=== PATIENT | male | born 1985 | race Caucasian/White ===

== ENCOUNTER 2017-03-30 17:44 | Emergency (ER) | payer BC ==
--- NOTE | 2017-03-30 18:14 | EDM.PDOC ---
<Marlin Bedolla - Last Filed: 03/30/17 19:06> ED HPI GENERAL MEDICAL PROBLEM - General Chief Complaint: Upper Extremity Injury/Pain Stated Complaint: LEFT WRIST PAIN Time Seen by Provider: 03/30/17 18:13 Source of Information: Reports: Patient History Limitations: Reports: No Limitations - History of Present Illness INITIAL COMMENTS - FREE TEXT/NARRATIVE: HISTORY AND PHYSICAL: []31-year-old male presents with left wrist pain History of Present Illness: [] Injured last night by extending his hand to catch a ball, and it hyperflexed. He is continuing to have pain Review of Systems: As per history of present illness and below otherwise all systems reviewed and negative. Past medical history: As per history of present illness and as reviewed below otherwise noncontributory. Surgical history: As per history of present illness and as reviewed below otherwise noncontributory. Social history: No reported history of drug or alcohol abuse. Family history: As per history of present illness and as reviewed below otherwise noncontributory. Physical exam: Alert and oriented male does not look to be in severe distress 3 questions appropriately HEENT: Atraumatic, normocehpalic, pupils reactive, negative for conjunctival pallor or scleral icterus, mucous membranes moist, throat clear, neck supple, nontender, trachea midline. Lungs: Clear to auscultation, breath sounds equal bilaterally, chest non tender. Heart: S1S2, regular, negative for clicks, rubs, or JVD. Abdomen: Soft, nondistended, nontender. Negative for masses or hepatossplenmegaly. Negative for costovertebral tenderness. Pelvis: Stable nontender. Genitourinary: Deferred. Rectal: Deferred Extremities: Atraumatic, negative for cords or calf pain. Radial pulse is easily palpable to left wrist. Sensation is intact. Full range of motion noted to fingers. Limited due to pain with moving wrist Neurovascular unremarkable. Neuro: Awake, alert, oriented. Cranial nerves II through XII unremarkable. Cerebellum unremarkable. Motor and sensory unremarkable throughout. Exam nonfocal. Diagnostics: []Wrist x-ray Therapeutics: [] Impression: [Possible fractured wrist] Plan: [] Follow-up with orthopedics Prescription has been written for hydrocodone/APAP 5/325 one 3 times a day when necessary pain #12 no refill Definitive disposition and diagnosis as appropriate pending reevaluation and review of above. Onset: Sudden Duration: Day(s): Location: Reports: Upper Extremity, Left Left Wrist Pain Score (Numeric/FACES): 9 - Related Data Allergies Allergy/AdvReac Type Severity Reaction Status Date / Time No Known Allergies Allergy Verified 03/30/17 17:52 Home Meds: Home Meds . [No Known Home Meds] 03/30/17 [History] Past Medical History Musculoskeletal History: Reports: Other (See Below) Other Musculoskeletal History: Broken neck, collar bone, right leg, finger - Past Surgical History HEENT Surgical History: Reports: Tonsillectomy Social & Family History - Tobacco Use Smoking Status *Q: Current Every Day Smoker Years of Tobacco use: 8 Packs/Tins Daily: 1 - Caffeine Use Caffeine Use: Reports: Coffee, Energy Drinks - Recreational Drug Use Recreational Drug Use: No Review of Systems - Review of Systems Review Of Systems: ROS reveals no pertinent complaints other than HPI. ED EXAM, GENERAL - Physical Exam Exam: See Below (See dictation) Course - Vital Signs Last Recorded V/S: Last Vital Signs Temp 36.3 C 03/30/17 19:21 Pulse 61 03/30/17 19:21 Resp 17 03/30/17 19:21 BP 137/77 03/30/17 19:21 Pulse Ox 99 03/30/17 19:21 - Orders/Labs/Meds Orders: Active Orders 24 hr Category Date Time Status Splinting [RC] ASDIRECTED Care 03/30/17 19:07 Active Wrist 2V Lt [CR] Stat Exams 03/30/17 18:12 Taken Departure - Departure Time of Disposition: 19:07 Disposition: Home, Self-Care 01 Condition: Good Clinical Impression: Closed fracture of radius Qualifiers: Encounter type: initial encounter Radius location: proximal Fracture morphology : unspecified fracture morphology Laterality: left Qualified Code(s): S52.102A - Unspecified fracture of upper end of left radius, initial encounter for closed fracture - Discharge Information Instructions: Cast or Splint Care, [id number], Wrist Fracture Treated With Immobilization, [id number] Referrals: PCP,None [Primary Care Provider] - Forms: ED Department Discharge Additional Instructions: The following information is given to patients seen in the emergency department who are being discharged to home. This information is to outline your options for follow-up care. We provide all patients seen in our emergency department with a follow-up referral. The need for follow-up, as well as the timing and circumstances, are variable depending upon the specifics of your emergency department visit. If you don't have a primary care physician on staff, we will provide you with a referral. We always advise you to contact your personal physician following an emergency department visit to inform them of the circumstance of the visit and for follow-up with them and/or the need for any referrals to a consulting specialist. The emergency department will also refer you to a specialist when appropriate. This referral assures that you have the opportunity for followup care with a specialist. All of these measure are taken in an effort to provide you with optimal care, which includes your followup. Under all circumstances we always encourage you to contact your private physician who remains a resource for coordinating your care. When calling for followup care, please make the office aware that this follow-up is from your recent emergency room visit. If for any reason you are refused follow-up, please contact the [facility] emergency department at and asked to speak to the emergency department charge nurse. Please follow-up in the next [address] Heidi GREEN [facility] [address] [place] [address], [address] [place] [address] Please call for an appointment <Nidia Arellano - Last Filed: 03/30/17 21:56> ED HPI GENERAL MEDICAL PROBLEM - History of Present Illness INITIAL COMMENTS - FREE TEXT/NARRATIVE: A post mold was applied by nursing
[2017-03-30 19:25] VITALS: BP 137/77
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
== END 2017-03-30 19:25 | disposition home or self-care (01) ==
LOC: MW.ED 17:44
DX: S52.102A Unspecified fracture of upper end of left radius, initial encounter for closed fracture (principal); F17.210 Nicotine dependence, cigarettes, uncomplicated; Z98.890 Other specified postprocedural states; X50.9XXA Other and unspecified overexertion or strenuous movements or postures, initial encounter
CPT/HCPCS: 73100-26-LT; 73100-LT; 99283

== ENCOUNTER 2019-09-09 18:50 | Emergency (ER) | payer SELFPAY ==
[2019-09-09 19:11] VITALS: BP 154/70; PULSE 94
[2019-09-09] MEDS ORDERED: Sodium Chloride 0.9% 1,000 ML IV ONE (19:28)
[2019-09-09] MEDS ORDERED: Ondansetron 4 MG/2 ML SDV IVPUSH ONE (19:28)
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
[2019-09-09 20:09] LABS: CARBON DIOXIDE,CO2 25.3 mmol/L (21.0-32.0); POTASSIUM,K 4.1 mmol/L (3.5-5.1)
[2019-09-09] MEDS ORDERED: Iopamidol 755 MG/ML 200 ML Multipack Bottle IVPUSH ONE (20:48)
--- NOTE | 2019-09-09 21:08 | CT ---
CT chest Technique: Multiple axial sections were obtained from above the lung apices inferiorly through the lung bases. Intravenous contrast was utilized. Comparison: No prior chest imaging is available. Findings: Aorta shows no aneurysm. Pulmonary arteries appear within normal limits. Mediastinum and hilar regions show no adenopathy or mass. Soft tissue density is noted within superior mediastinum compatible with residual thymic tissue. No pericardial effusion is seen. Visualized portions of the upper abdominal structures shows no discrete abnormality. Lung window settings were reviewed. Very minimal parenchymal density is noted within the posterior left upper lung which may represent mild area of atelectasis or even a small area of lung contusion. Lungs otherwise are clear. No additional parenchymal change is seen. No pleural effusions are seen. No pneumothorax is appreciated. Bone window settings were reviewed. No discrete rib fracture is appreciated. Slight compression deformity is seen within the mid thoracic spine. I do not see a definite acute fracture line although MRI would be needed to look for bone marrow edema to rule out an acute compression deformity. No other spine abnormality is appreciated. Impression: 1. Slight compression deformity within the midthoracic spine. As mentioned above, no acute fracture line is seen but MRI would be needed to evaluate for bone marrow edema to rule out acute compression deformity. 2. Minimal density within the posterior left upper lung which may represent atelectasis or a minimal area of lung contusion. 3. No additional abnormality is appreciated on CT study of the chest. Diagnostic code #3 This report was dictated in [place] Standard Time
== END 2019-09-09 21:25 | disposition home or self-care (01) ==
LOC: MW.ED 18:50
DX: J10.1 Influenza due to other identified influenza virus with other respiratory manifestations (principal); R07.89 Other chest pain
CPT/HCPCS: 36415; 71260; 80053; 83690; 85025; 87081; 87804; 87880; 96361; 96374; 99284; J2405; J7030; Q9967